=== PATIENT | female | born 1990 | race Caucasian/White ===

== ENCOUNTER 2018-03-03 23:19 | Outpatient (CLI) | payer BC ==
[2018-03-03 23:33] LABS: Basophils % (A) 0 %; Eosinophils # (A) 0.1 k/uL (0-0.7); Eosinophils % (A) 1 %; HGB 9.8 gm/dL (11.4-16.0); Lymphocytes # (A) 1.9 k/uL (1.0-4.8); Lymphocytes % (A) 18 %; MCH 29.3 pg (25.0-35.0); MCHC 35.1 g/dL (31.0-37.0); MCV 83.5 fL (80.0-100.0); Mean Platelet Volume 7.3; Monocytes # (A) 0.6 k/uL (0-1.0); Monocytes % (A) 6 %; Neutrophils # (A) 7.5 k/uL (1.3-7.7); Neutrophils % (A) 73 %; Platelet Count 238 k/uL (150-450); Poikilocytosis Slight; RBC 3.35 m/uL (3.80-5.40); RDW 14.2 % (11.5-15.5); WBC 10.3 k/uL (3.8-10.6)
--- NOTE | 2018-03-03 23:40 | P.HPOB ---
History of Present Illness H&P Date: 03/03/18 Chief Complaint: Third trimester bleeding His patient is a pleasant 27-year-old 2 para 0 female estimated date of confinement 04/16/2018 estimated gestational age 33-5/7 weeks who's called me earlier this evening with complaints of a large amount of vaginal bleeding at approximately 10:30. Patient's care is per Dr. Torres appears to be uncomplicated. She did transfer to Dr. Torres at 21 weeks and she 's had a normal anatomy ultrasound normal placenta. Patient denies any bleeding with the . She denies any contractions or abdominal pain. Patient was most recently seen on February 27 and was without complaints at that time. Patient is now being seen and evaluated. Review of Systems Genitourinary: Reports Past Medical History Past Medical History: No Reported History History of Any Multi-Drug Resistant Organisms: None Reported Additional Past Surgical History / Comment(s): She's had a D&C for a previous miscarriage. Past Anesthesia/Blood Transfusion Reactions: No Reported Reaction Past Psychological History: No Psychological Hx Reported Smoking Status: Never smoker Past Alcohol Use History: None Reported Past Drug Use History: None Reported Medications and Allergies Home Medications Medication Instructions Recorded Confirmed Type Pnv,Calcium 72/Iron/Folic Acid 1 tab PO DAILY 03/03/18 03/03/18 History [ Plus Tablet] Allergies Allergy/AdvReac Type Severity Reaction Status Date / Time azithromycin Allergy Rash/Hives Verified 03/03/18 23:21 Exam - Vital Signs Vital signs: Intake and Output 03/03/18 03/03/18 03/04/18 14:59 22:59 06:59 Other: Weight 79.832 kg - OBG Physical Exam Abdomen: bowel sounds normal, no diffuse tenderness, no bruit present, no guarding noted, no hepatomegaly, no splenomegaly, no mass Vulva: both: normal Vagina: normal moisture, no discharge Cervix: no lesion (Cervix is 1 and thick. Sterile speculum exam shows pooling of dark red vaginal blood.), no discharge Uterus: enlarged Results Patient's blood type is A- (she did not receive RhoGAM because her reports he is Rh- as well) she is rubella immune she is RPR nonreactive she's hepatitis B negative she is HIV nonreactive. She had an abnormal Glucola with a normal three-hour gtt. She had a normal anatomy ultrasound done at 21 weeks. Assessment and Plan Assessment: This is a pleasant 27-year-old 2 para 0 female 33-5/7 weeks' gestation with acute onset of dark red vaginal bleeding. This time heart tones are reassuring without decelerations. Patient is not having any contractions that she appreciates a little she is dilated 1 cm. Patient is not having any abdominal pain. Plan at this time is to do a OB ultrasound, check a CBC, do a type and screen, and check coags. Pending these results most likely will transfer this patient due to concern for possible abruption versus dilation. (1) Third trimester bleeding Current Visit: Yes Status: Acute Code(s): O46.93 - ANTEPARTUM HEMORRHAGE, UNSPECIFIED, THIRD TRIMESTER SNOMED Code(s): 602388639
[2018-03-03] MEDS ORDERED: BETAMET ACET-BETAMETH SOD PHOS 6 MG/ML VIAL IM SCH (23:45)
[2018-03-03 23:48] LABS: INR 0.9 (<1.2); Prothrombin Time 9.4 sec (9.0-12.0)
[2018-03-04] MEDS ORDERED: LACTATED RINGERS 1,000 ML IV SCH (00:15)
--- NOTE | 2018-03-04 00:21 | US ---
EXAMINATION TYPE: US OB >= 14 wk fetus DATE OF EXAM: 03/04/2018 COMPARISON: None CLINICAL HISTORY: Third trimester bleedingBleeding TECHNIQUE: Transabdominal (TA) GESTATIONAL AGE / DATING Physician Established: (33 weeks/5 days) EDC: 04/16/2018 Dates by LMP: (33 weeks/5 days) EDC: 04/16/2018 Dates by First Scan: No previous this is first scan Dates by Current Scan: (33 weeks/2 days) EDC: 04/19/2018 SURVEY IUP: Single PLACENTA: Anterior PREVIA: No Previa CARLOS: 14.2 cm Normal CERVICAL LENGTH (transabdominal: norm > 3.0cm): 3.9 cm BIOMETRY PRESENTATION: Vertex LIE: Longitudinal BPD: 8.5 cm 34 weeks / 1 days HC: 31.7 cm 35 weeks / 5 days AC: 30.4 cm 34 weeks / 2 days FL: 6.1 cm 31 weeks / 6 days ESTIMATED WEIGHT IN GRAMS: 2271 grams ESTIMATED WEIGHT IN LBS/OZ: 5 lbs. 0 oz. WEIGHT PERCENTAGE BASED ON ESTABLISHED DATES: 44% HC/AC: 1.0 cm Normal FL/AC: 72.6 cm Normal HEART RATE: 134 bpm RHYTHM: Normal Viable IUP 33 wks 2 days MILLER 04/19/2018 HR 134 BPM IMPRESSION: Ultrasound gestational age is 33 weeks and 2 days. No evidence of placenta previa or placental abrupt ion. Amniotic fluid is adequate.
--- NOTE | 2018-03-04 00:22 | P.PN ---
Progress Note - Text Progress Note Date: 03/04/18 Ultrasound shows a vertex appropriately grown fetus 2271 g. There is no evidence of a placental abruption. Amniotic fluid is normal. CBC shows a hemoglobin of 9.8 however on January 03 in the office she was 9.5 so this is chronic in nature. Coagulation factors are normal. heart tones are 130s there are no decelerations and reassuring at this time. I have discussed the clinical situation with the attending physician at [facility] and due to the prematurity I feel is best to transfer at this time in the event of an necessitating delivery. I am going to give her a shot of Celestone prior to transfer. I had a discussion with the patient and her and family about the clinical situation and indication for transfer. They are agreeable transfer at this time. There is no evidence of maternal compromise at this time. Plan at this time is to transfer to [facility] labor and delivery for further evaluation and observation.
--- NOTE | 2018-03-04 00:28 | P.DS ---
Providers Expected date of discharge: 03/04/18 Attending physician: Eriberto Burnette Primary care physician: Agueda Torres - Discharge Diagnosis(es) (1) Third trimester bleeding Current Visit: Yes Status: Acute Hospital Course: Please see dictated H&P and progress note on this patient's admission. Brief summary pleasant 27-year-old 2 para 0 female 33-5/7 weeks' gestation began having fairly copious amount of dark red bleeding at 10:30 this last evening. Patient evaluated in labor and delivery found to have no evidence of abruption on ultrasound, cervix over was dilated 1 cm but thick. Due to prematurity and concerns for possible delivery is felt best to give the patient Celestone and transfer to a tertiary facility. Patient subsequently was transferred to [facility] via EMS. Patient Condition at Discharge: Stable Plan - Discharge Summary New Discharge Prescriptions: No Action Pnv,Calcium 72/Iron/Folic Acid [ Plus Tablet] 1 tab PO DAILY Discharge Medication List Pnv,Calcium 72/Iron/Folic Acid [ Plus Tablet] 1 tab PO DAILY 03/03/18 [ History]
--- NOTE | 2018-03-04 06:52 | P.MSEPDOC ---
Presenting Problems - Arrival Data Date of Arrival on Unit: 03/03/18 Time of Arrival on Unit: 23:01 Mode of Transport: Portable Medical History - Information : 2 Para: 0 Term: 0 : 0 Abortions: Spontaneous or Elective: 0 Number of Living Children: 0 - Gestational Age Gestational Age by MILLER (wks/days): 33 Weeks and 6 Days Physician Notification (Pre) - Notification Comment Comment: DR JAMIL AT BEDSIDE. Disposition - Disposition Discharge Date: 03/04/18 Discharge Time: 01:25 I agree with the RN Medical Screening Exam: Yes Risk & Benefit of care provided described in d/c instruction: Yes Diagnosis: ANTEPARTUM HEMORRHAGE, UNSPECIFIED, THIRD TRIMESTER
== END 2018-03-04 01:25 | disposition short-term general hospital, planned readmission (82) ==
LOC: FBPOP 23:19
PROVIDERS: ATTEND Obstetrics & Gynecology
DX: O46.93 Antepartum hemorrhage, unspecified, third trimester (principal); Z3A.33 33 weeks gestation of pregnancy
CPT/HCPCS: 59025; 99215; 96360; 96361; 96372; 86900; 86901; 85025; 85610; 85730; 86850; 76805; J0702

== ENCOUNTER 2018-04-07 19:50 | Inpatient (IN) | payer BC ==
[2018-04-07] MEDS ORDERED: METHYLERGONOVINE 0.2 MG/ML 1 ML AMP IM PRN (20:24)
[2018-04-07] MEDS ORDERED: OXYTOCIN 10 UNIT/ML 1 ML VIAL IM PRN (20:24)
[2018-04-07] MEDS ORDERED: LIDOCAINE 1% (PF) 10 MG/ML (30 ML SDV) SQ PRN (20:24)
[2018-04-07] MEDS ORDERED: TERBUTALINE 1 MG/ML VIAL SQ PRN (20:24)
[2018-04-07] MEDS ORDERED: CARBOPROST TROMETHAMINE 250 MCG/ML 1 ML AMP IM PRN (20:24)
[2018-04-07] MEDS ORDERED: OXYTOCIN 20 UNITS/1000 ML NS 1,000 ML IV SCH (20:30)
[2018-04-07] MEDS: LACTATED RINGERS 1,000 ML IV SCH ×2 (20:59→23:05)
[2018-04-07 21:09] VITALS: BMI 32.8
[2018-04-07 21:23] LABS: Basophils % (A) 0 %; Eosinophils % (A) 0 %; HCT 29.2 % (34.0-46.0); HGB 10.2 gm/dL (11.4-16.0); Lymphocytes # (A) 1.5 k/uL (1.0-4.8); Lymphocytes % (A) 17 %; MCHC 34.9 g/dL (31.0-37.0); Mean Platelet Volume 8.7; Monocytes # (A) 0.7 k/uL (0-1.0); Monocytes % (A) 8 %; Neutrophils # (A) 6.2 k/uL (1.3-7.7); Neutrophils % (A) 73 %; Platelet Count 208 k/uL (150-450); RBC 3.52 m/uL (3.80-5.40); RDW 14.2 % (11.5-15.5); WBC 8.6 k/uL (3.8-10.6)
[2018-04-07] MEDS ORDERED: fentaNYL (PF) 50 MCG/ML 5 ML AMP ONE (22:27)
[2018-04-07] MEDS ORDERED: BUPIVACAINE (PF) 0.25% 30 ML VIAL ONE (22:27)
[2018-04-07] MEDS ORDERED: SODIUM CHLORIDE 0.9% 100 ML BAG ONE (22:27)
[2018-04-08] MEDS ORDERED: HYDROcodone/APAP 5-325MG 1 EACH TAB PO PRN (04:29)
[2018-04-08] MEDS ORDERED: HYDROCORTISONE 2.5% RECTAL CREAM 30 GM TUBE RECTAL PRN (04:29)
[2018-04-08] MEDS ORDERED: SIMETHICONE 80 MG CHEWABLE PO PRN (04:29)
[2018-04-08] MEDS ORDERED: WITCH HAZEL 1 EACH MED..PAD TOPICAL PRN (04:29)
[2018-04-08] MEDS ORDERED: diphenhydrAMINE 50 MG/ML 1 ML VIAL IVP PRN ×2 (04:29)
[2018-04-08] MEDS ORDERED: ZOLPIDEM 5 MG TAB PO PRN (04:29)
[2018-04-08] MEDS ORDERED: ACETAMINOPHEN TAB 325 MG TAB PO PRN (04:29)
[2018-04-08] MEDS ORDERED: diphenhydrAMINE 25 MG CAP PO PRN (04:29)
[2018-04-08] MEDS ORDERED: diphenhydrAMINE 50 MG CAP PO PRN (04:29)
[2018-04-08] MEDS ORDERED: LANOLIN CREAM 5 GM TUBE TOPICAL PRN (04:29)
[2018-04-08] MEDS ORDERED: BENZOCAINE/MENTHOL SPRAY 1 GM/SPRAY AEROSOL TOPICAL PRN (04:29)
[2018-04-08] MEDS ORDERED: OXYTOCIN 20 UNITS/1000 ML NS 1,000 ML IV SCH (04:30)
--- NOTE | 2018-04-08 04:34 | P.HPOB ---
History of Present Illness H&P Date: 04/08/18 Chief Complaint: SROM 27-year-old presents at 38 weeks and 5 days complaining of spontaneous rupture of membranes at 1830 on 04/07/2018. Clear fluid was noted and she was deandre irregularly. heart tones 130-135 with moderate variability and reactive. Her cervix was 3-4 cm dilated, 80% effaced, -2 station. Review of Systems All systems: negative Constitutional: Denies chills, Denies fever Eyes: denies blurred vision, denies pain Ears, nose, mouth and throat: Denies headache, Denies sore throat Cardiovascular: Denies chest pain, Denies shortness of breath Respiratory: Denies cough Gastrointestinal: Denies abdominal pain, Denies diarrhea, Denies nausea, Denies vomiting Genitourinary: Denies dysuria, Denies hematuria Musculoskeletal: Denies myalgias Integumentary: Denies pruritus, Denies rash Neurological: Denies numbness, Denies weakness Psychiatric: Denies anxiety, Denies depression Endocrine: Denies fatigue, Denies weight change Past Medical History Past Medical History: No Reported History Additional Past Medical History / Comment(s): Obstetric history: First was a spontaneous with a D&C. This is her second and she's had care with me since 21 weeks as a transfer of care. Blood type A-, antibodies negative, rubella immune, RPR nonreactive, hepatitis B negative, HIV nonreactive. GBS negative. Abnormal one-hour GTT, and a normal 3 hour. History of Any Multi-Drug Resistant Organisms: None Reported Additional Past Surgical History / Comment(s): She's had a D&C for a previous miscarriage. Past Anesthesia/Blood Transfusion Reactions: No Reported Reaction Past Psychological History: No Psychological Hx Reported Smoking Status: Never smoker Past Alcohol Use History: None Reported Past Drug Use History: None Reported - Past Family History Mother Family Medical History: No Reported History Medications and Allergies Home Medications Medication Instructions Recorded Confirmed Type Pnv,Calcium 72/Iron/Folic Acid 1 tab PO DAILY 03/03/18 03/03/18 History [ Plus Tablet] Allergies Allergy/AdvReac Type Severity Reaction Status Date / Time azithromycin Allergy Rash/Hives Verified 04/07/18 20:23 Exam Osteopathic Statement: *. No significant issues noted on an osteopathic structural exam other than those noted in the History and Physical/Consult. - Vital Signs Vital signs: Vital Signs Temp Pulse Resp BP Pulse Ox 04/07/18 20:23 97.7 F 73 18 131/75 99 Intake and Output 04/07/18 04/07/18 04/08/18 14:59 22:59 06:59 Other: # Voids 1 Weight 83.915 kg Heart: Regular rate and rhythm Lungs: Clear to auscultation bilaterally Abdomen: Soft, nontender Extremities: Negative Homans sign Results Result Diagrams: 04/07/18 21:00 Abnormal Lab Results - Last 24 Hours (Table) 04/07/18 Range/Units 21:00 RBC 3.52 L (3.80-5.40) m/uL Hgb 10.2 L (11.4-16.0) gm/dL Hct 29.2 L (34.0-46.0) % Assessment and Plan (1) Spontaneous rupture of membranes Current Visit: Yes Status: Acute Code(s): [id number] - SNOMED Code(s): 799891439 Plan: 1. Admit to family place 2. Pitocin augmentation if necessary 3. Anticipate normal vaginal delivery
--- NOTE | 2018-04-08 04:37 | P.PROBDLV ---
Vaginal Delivery Note - . Vaginal Delivery Note: 27-year-old presents at 38 weeks and 5 days with spontaneous rupture of membranes at 1830 on 04/07/2018. Her cervix was 3-4 cm dilated, 80% effaced, and -2 station, clear fluid noted. She is deandre irregularly. heart tones were 130-135 with moderate variability and reactive. After an IV was started her contractions became even more irregular and Pitocin augmentation was started. When she was uncomfortable she did get an epidural. Her cervix was completely dilated at 1:39 AM. She pushed, and delivered a viable female over midline episiotomy under epidural anesthesia at 3:55 AM. Head delivered OA, anterior shoulder which was the left shoulder delivered gentle downward traction followed by posterior shoulder and rest of body. Nose and mouth bulb suctioned, cord clamped and cut, infant placed on mother's abdomen. Apgars 7, 8, weight 7 lbs. 10 oz. Placenta delivered spontaneously, intact with three-vessel cord at 3:59 AM. Vagina, cervix, and perineum were inspected. Third degree midline laceration was repaired with 2-0, 3-0 and 4-0 Vicryl. Estimated blood loss 200 mL. Mother and baby in stable condition.
[2018-04-08] MEDS: IBUPROFEN 600 MG TAB PO PRN ×2 (04:56→20:25)
[2018-04-08] MEDS ORDERED: BUPIVACAINE (PF) 0.25% 25 ML, fentaNYL (PF) 200 MCG in SODIUM CHLORIDE 0.9% 71 ML EPIDURAL ONE (06:51)
[2018-04-08] MEDS: SENNOSIDES-DOCUSATE SODIUM 1 EACH TAB PO SCH ×2 (18:22→19:37)
--- NOTE | 2018-04-09 07:00 | P.DS ---
Providers Date of admission: 04/07/18 20:20 Expected date of discharge: 04/09/18 Attending physician: Agueda Torres Primary care physician: Agueda Torres - Discharge Diagnosis(es) (1) Spontaneous rupture of membranes Current Visit: Yes Status: Resolved (2) Normal vaginal delivery Current Visit: Yes Status: Acute Hospital Course: Patient presented with spontaneous rupture membranes. She underwent a normal vaginal delivery with Pitocin augmentation. Her course was uncomplicated. She denies nausea, vomiting, chest pain, shortness of breath or calf pain. She is ambulating and voiding without difficulty. Her lochia is decreasing and her fundus is firm. She will be discharged home day # 1 in stable condition to follow-up with me in 6 weeks. Plan - Discharge Summary New Discharge Prescriptions: New Ibuprofen [Motrin] 600 mg PO Q6HR PRN #30 tab PRN Reason: Mild Pain Or Fever >= 100.5 No Action Pnv,Calcium 72/Iron/Folic Acid [ Plus Tablet] 1 tab PO DAILY Discharge Medication List Pnv,Calcium 72/Iron/Folic Acid [ Plus Tablet] 1 tab PO DAILY 03/03/18 [ History] Ibuprofen [Motrin] 600 mg PO Q6HR PRN #30 tab 04/09/18 [Rx] Follow up Appointment(s)/Referral(s): Agueda Torres DO [Primary Care Provider] - 6 Weeks Discharge Disposition: HOME SELF-CARE
[2018-04-09] MEDS: SENNOSIDES-DOCUSATE SODIUM 1 EACH TAB PO SCH ×2 (15:54→19:28)
[2018-04-09] MEDS: IBUPROFEN 600 MG TAB PO PRN (17:04)
[2018-04-10 00:21] VITALS: RESP 16
[2018-04-10] MEDS: SENNOSIDES-DOCUSATE SODIUM 1 EACH TAB PO SCH (09:24)
[2018-04-10 09:36] VITALS: BP 111/78; PULSE 90; TEMP 98
== END 2018-04-10 15:30 | disposition home or self-care (01) | DRG 775 ==
LOC: FBPOP 19:50 → 4FBP 20:20
PROVIDERS: ADMIT Obstetrics & Gynecology; ATTEND Obstetrics & Gynecology
PROC: 0W8NXZZ Division of Female Perineum, External Approach (ICD-10-PCS; principal; 2018-04-07)
PROC: 10E0XZZ Delivery of Products of Conception, External Approach (ICD-10-PCS; 2018-04-07)
PROC: 00HU33Z Insertion of Infusion Device into Spinal Canal, Percutaneous Approach (ICD-10-PCS; 2018-04-07)
PROC: 3E0R3NZ Introduction of Analgesics, Hypnotics, Sedatives into Spinal Canal, Percutaneous Approach (ICD-10-PCS; 2018-04-07)
DX: O80 Encounter for full-term uncomplicated delivery (principal); Z3A.38 38 weeks gestation of pregnancy; Z37.0 Single live birth; Z88.1 Allergy status to other antibiotic agents
CPT/HCPCS: 85025; 88307

== ENCOUNTER 2019-10-21 05:07 | Inpatient (IN) | payer BC ==
[2019-10-21] MEDS ORDERED: TERBUTALINE 1 MG/ML VIAL SQ PRN (05:34)
[2019-10-21] MEDS ORDERED: OXYTOCIN 10 UNIT/ML 1 ML VIAL IM PRN (05:34)
[2019-10-21] MEDS ORDERED: METHYLERGONOVINE 0.2 MG/ML 1 ML AMP IM PRN (05:34)
[2019-10-21] MEDS ORDERED: LIDOCAINE 0.5% (PF) 5 MG/ML (50 ML SDV) SQ PRN (05:34)
[2019-10-21] MEDS ORDERED: CARBOPROST TROMETHAMINE 250 MCG/ML 1 ML AMP IM PRN (05:34)
[2019-10-21] MEDS ORDERED: BUTORPHANOL 1 MG/ML 1 ML VIAL IV PRN (05:35)
[2019-10-21] MEDS ORDERED: LACTATED RINGERS 1,000 ML IV SCH (05:45)
[2019-10-21 05:52] VITALS: BMI 32.4
[2019-10-21 05:56] LABS: Basophils # (A) 0.1 k/uL (0-0.2); Basophils % (A) 1 %; Eosinophils # (A) 0.1 k/uL (0-0.7); Eosinophils % (A) 1 %; HCT 31.5 % (34.0-46.0); Lymphocytes # (A) 1.7 k/uL (1.0-4.8); Lymphocytes % (A) 21 %; MCH 30.4 pg (25.0-35.0); MCHC 34.7 g/dL (31.0-37.0); MCV 87.5 fL (80.0-100.0); Mean Platelet Volume 7.5; Monocytes # (A) 0.5 k/uL (0-1.0); Monocytes % (A) 6 %; Neutrophils # (A) 5.6 k/uL (1.3-7.7); Neutrophils % (A) 70 %; Platelet Count 205 k/uL (150-450); RDW 14.5 % (11.5-15.5)
[2019-10-21 06:39] LABS: Glucose,Whole Blood 96 mg/dL (75-99)
[2019-10-21] MEDS ORDERED: OXYTOCIN 30 UNITS/500 ML NS 30 UNIT in SALINE 1 500ML.BAG IV SCH (07:00)
--- NOTE | 2019-10-21 08:43 | P.HPOB ---
History of Present Illness H&P Date: 10/21/19 Chief Complaint: IUP at 38 and 2/sevenths weeks, spontaneous rupture of memb ro This is a 29-year-old 3 para 1011 at 38-2/7 weeks that presents to labor and delivery with complaints of rupture of membranes at 4 AM. Patient states she had a small gush of fluid that was clear in nature. Patient presented to the hospital and rupture of membranes was confirmed. Patient was admitted to labor and delivery. This morning patient is noted to be deandre every 3 m inutes and heart tones are noted to be category 1. Patient states the baby has been active she denies vaginal bleeding at this time. Her care has been uncomplicated with the exception of diet- controlled gestational diabetes she has had excellent control. On bloodwork should a blood type of A-, rubella is noted to be nonimmune, hep Esperanza surface antigen is negative, GBS is negative. Review of Systems Constitutional: Denies fatigue, Denies fever Ears, nose, mouth and throat: Denies headache Cardiovascular: Reports leg edema Gastrointestinal: Denies constipation, Denies diarrhea, Denies nausea, Denies vomiting Genitourinary: Reports Past Medical History Past Medical History: No Reported History Additional Past Medical History / Comment(s): Obstetric history: First was a spontaneous with a D&C. This is her second and she's had care with me since 21 weeks as a transfer of care. Blood type A-, antibodies negative, rubella immune, RPR nonreactive, hepatitis B negative, HIV nonreactive. GBS negative. Abnormal one-hour GTT, and a normal 3 hour. GDM 09/19 History of Any Multi-Drug Resistant Organisms: None Reported Additional Past Surgical History / Comment(s): She's had a D&C for a previous miscarriage. Past Anesthesia/Blood Transfusion Reactions: No Reported Reaction Past Psychological History: No Psychological Hx Reported Smoking Status: Never smoker Past Alcohol Use History: None Reported Past Drug Use History: None Reported - Past Family History Mother Family Medical History: No Reported History Medications and Allergies Home Medications Medication Instructions Recorded Confirmed Type Pnv,Calcium 72/Iron/Folic Acid 1 tab PO DAILY 03/03/18 10/21/19 History [ Plus Tablet] Allergies Allergy/AdvReac Type Severity Reaction Status Date / Time azithromycin Allergy Rash/Hives Verified 10/21/19 05:33 Exam Osteopathic Statement: *. No significant issues noted on an osteopathic structural exam other than those noted in the History and Physical/Consult. Vital Signs Temp Pulse Resp BP Pulse Ox 10/21/19 05:32 97.6 F 73 16 125/82 98 10/21/19 05:22 97.6 F 73 16 125/82 98 Intake and Output 10/20/19 10/21/19 10/21/19 22:59 06:59 14:59 Other: # Voids 1 Weight 83.007 kg Targeted physical exam is performed on this date and senior report developer a well-nourished well-developed female in no acute distress, breathing is noted to be nonlabored, heart has a regular rate and rhythm abdomen is gravid and appropriate for gestational age, on cervical exam she is 5/70/-2 large bulging bag of water is noted amniotomy is performed and clear fluid was obtained. heart tones are noted to be category 1 and she is deandre every 2-3 minutes. Results Result Diagrams: 10/21/19 05:47 Abnormal Lab Results - Last 24 Hours (Table) 10/21/19 Range/Units 05:47 RBC 3.60 L (3.80-5.40) m/uL Hgb 11.0 L (11.4-16.0) gm/dL Hct 31.5 L (34.0-46.0) % Assessment and Plan (1) Term Current Visit: Yes Status: Acute Code(s): Z34.90 - ENCNTR FOR SUPRVSN OF NORMAL , UNSP, UNSP TRIMESTER SNOMED Code(s): 97332669 (2) Spontaneous rupture of membranes Current Visit: No Status: Resolved Code(s): YPH6882 - SNOMED Code(s): 221765821 Plan: Patient is admitted to labor and delivery she does request epidural anesthesia has been notified. Anticipate spontaneous vaginal delivery.
[2019-10-21] MEDS ORDERED: ROPIVACAINE 5MG/ML 20ML VIAL ONE (08:46)
[2019-10-21] MEDS ORDERED: SODIUM CHLORIDE 0.9% 100 ML BAG ONE (08:46)
[2019-10-21] MEDS ORDERED: fentaNYL (PF) 50 MCG/ML 5 ML AMP ONE (08:46)
[2019-10-21] MEDS ORDERED: WITCH HAZEL 1 EACH MED..PAD TOPICAL PRN (12:49)
[2019-10-21] MEDS ORDERED: HYDROcodone/APAP 5-325MG 1 EACH TAB PO PRN (12:49)
[2019-10-21] MEDS ORDERED: diphenhydrAMINE 50 MG/ML 1 ML VIAL IVP PRN ×2 (12:49)
[2019-10-21] MEDS ORDERED: ACETAMINOPHEN TAB 325 MG TAB PO PRN (12:49)
[2019-10-21] MEDS ORDERED: diphenhydrAMINE 50 MG CAP PO PRN (12:49)
[2019-10-21] MEDS ORDERED: diphenhydrAMINE 25 MG CAP PO PRN (12:49)
[2019-10-21] MEDS ORDERED: ZOLPIDEM 5 MG TAB PO PRN (12:49)
[2019-10-21] MEDS ORDERED: HYDROCORTISONE 2.5% RECTAL CREAM 30 GM TUBE RECTAL PRN (12:49)
[2019-10-21] MEDS ORDERED: BENZOCAINE/MENTHOL SPRAY 1 GM/SPRAY AEROSOL TOPICAL PRN (12:49)
[2019-10-21] MEDS ORDERED: SIMETHICONE 80 MG CHEWABLE PO PRN (12:49)
[2019-10-21] MEDS ORDERED: LANOLIN CREAM 5 GM TUBE TOPICAL PRN (12:49)
--- NOTE | 2019-10-21 12:52 | P.PROBDLV ---
Vaginal Delivery Note - . Vaginal Delivery Note: This is a pleasant 29-year-old 3 para 1011 that presented to labor and delivery at 38-2/7 weeks with complaints of spontaneous rupture of membranes. Patient was admitted for expectant management. Patient made minimal change therefore Pitocin augmentation of labor was begun. Patient became uncomfortable requesting epidural placement. Epidural was placed without difficulty by the anesthesia department. She then progressed to complete began pushing and had a normal spontaneous vaginal delivery of a viable female infant at 1231, weight of 8 lbs. 9 oz. with Apgars of 8 and 9 at one and 5 minutes respectively. Of note infant was delivered through a nuchal cord, after two-minute delayed the umbilical cord was then doubly clamped and cut the placenta was delivered spontaneously intact with three-vessel cord being noted. On inspection the patient's vaginal vault a second-degree midline laceration was noted this was repaired in the usual fashion with 3-0 Rapide. Uterus was noted to be firm and below the umbilicus, estimated blood loss 300 mL, Henry catheter was used to drain the bladder of approximately 200 mL of urine after delivery. Patient and tolerated delivery well and are resting comfortably, All counts WERE correct 2
[2019-10-21] MEDS ORDERED: OXYTOCIN 20 UNITS/1000 ML NS 1,000 ML IV SCH (13:00)
[2019-10-21] MEDS: IBUPROFEN 600 MG TAB PO PRN (19:36)
[2019-10-21] MEDS: SENNOSIDES-DOCUSATE SODIUM 1 EACH TAB PO SCH (22:49)
[2019-10-22 07:05] LABS: Basophils % (A) 0 %; Eosinophils % (A) 0 %; HCT 27.9 % (34.0-46.0); HGB 9.6 gm/dL (11.4-16.0); Lymphocytes # (A) 1.5 k/uL (1.0-4.8); Lymphocytes % (A) 16 %; MCH 30.6 pg (25.0-35.0); MCHC 34.3 g/dL (31.0-37.0); MCV 89.2 fL (80.0-100.0); Mean Platelet Volume 7.6; Monocytes # (A) 0.5 k/uL (0-1.0); Monocytes % (A) 6 %; Neutrophils # (A) 7.3 k/uL (1.3-7.7); Neutrophils % (A) 77 %; Platelet Count 176 k/uL (150-450); RBC 3.13 m/uL (3.80-5.40); RDW 14.7 % (11.5-15.5); WBC 9.6 k/uL (3.8-10.6)
[2019-10-22] MEDS ORDERED: MEASLES-MUMPS-RUBELLA VACC/PF 12,500 UNIT/0.5 ML VIAL SQ ONE (08:12)
--- NOTE | 2019-10-22 08:31 | P.DS ---
Providers Date of admission: 10/21/19 05:24 Expected date of discharge: 10/22/19 Attending physician: Alpa Garcia Primary care physician: Stated None - Discharge Diagnosis(es) (1) Term Current Visit: Yes Status: Acute (2) Spontaneous rupture of membranes Current Visit: No Status: Resolved (3) Normal vaginal delivery Current Visit: No Status: Acute Hospital Course: This is a pleasant 29-year-old 3 para 1011 that presented to labor and delivery at 38-2/7 weeks with complaints of spontaneous rupture of membranes. Patient stated the fluid was clear at the time of rupture of membranes. Patient was admitted for expectant management. Patient made minimal change therefore Pitocin augmentation of labor was begun. On physical exam patient was noted to be 6/80/-2 and a large bulging bag of water was palpated therefore amniotomy was performed and clear fluid was obtained. Patient requested epidural placement at this time. Epidural was placed by the anesthesia department without difficulty. Patient progressed to complete and had a normal spontaneous vaginal delivery of a viable female at 1231, weight of 8 pounds 9 ounces with Apgars of 8 and 9 at one and 5 minutes respectively. Patient did sustain a second degree vaginal laceration which was repaired in the usual fashion with 3-0 repeat. Patient's post course has been uneventful. She is ambulating and voiding without difficulty on this day #1. She is tolerating a regular diet without nausea or vomiting. She states her pain is well-controlled. Her infant is doing well and awaiting a bilirubin screen. She does wish discharge home at 24 hours if is discharged as well. Patient Condition at Discharge: Good Plan - Discharge Summary Discharge Rx Participant: No New Discharge Prescriptions: No Action Pnv,Calcium 72/Iron/Folic Acid [ Plus Tablet] 1 tab PO DAILY Discharge Medication List Pnv,Calcium 72/Iron/Folic Acid [ Plus Tablet] 1 tab PO DAILY 03/03/18 [History] Follow up Appointment(s)/Referral(s): Alpa Garcia DO [Doctor of Osteopathic Medicine] - 4 Weeks Patient Instructions/Handouts: Vaginal Delivery (DC), Vaginal Delivery (GEN) Discharge Disposition: HOME SELF-CARE
[2019-10-22] MEDS: SENNOSIDES-DOCUSATE SODIUM 1 EACH TAB PO SCH ×2 (09:27→23:57)
[2019-10-22] MEDS: PRENATAL VIT-IRON-FOLIC ACID 1 EACH CAP PO SCH (09:45)
[2019-10-22] MEDS: IBUPROFEN 600 MG TAB PO PRN (15:33)
[2019-10-22 15:41] VITALS: RESP 16
[2019-10-23] MEDS: IBUPROFEN 600 MG TAB PO PRN (05:07)
[2019-10-23] MEDS: PRENATAL VIT-IRON-FOLIC ACID 1 EACH CAP PO SCH (09:08)
[2019-10-23] MEDS: SENNOSIDES-DOCUSATE SODIUM 1 EACH TAB PO SCH (09:08)
[2019-10-23 16:06] VITALS: BP 126/74; PULSE 71; TEMP 97.6
== END 2019-10-23 17:30 | disposition home or self-care (01) | DRG 807 ==
LOC: FBPOP 05:07 → 4FBP 05:24
PROVIDERS: ADMIT Obstetrics & Gynecology Obstetrics; ATTEND Obstetrics & Gynecology Obstetrics
PROC: 10E0XZZ Delivery of Products of Conception, External Approach (ICD-10-PCS; principal; 2019-10-21)
PROC: 0KQM0ZZ Repair Perineum Muscle, Open Approach (ICD-10-PCS; 2019-10-21)
PROC: 00HU33Z Insertion of Infusion Device into Spinal Canal, Percutaneous Approach (ICD-10-PCS; 2019-10-21)
PROC: 3E0R3BZ Introduction of Anesthetic Agent into Spinal Canal, Percutaneous Approach (ICD-10-PCS; 2019-10-21)
DX: O24.420 Gestational diabetes mellitus in childbirth, diet controlled (principal); Z37.0 Single live birth; O69.81X0 Labor and delivery complicated by cord around neck, without compression, not applicable or unspecified; O70.1 Second degree perineal laceration during delivery; Z3A.38 38 weeks gestation of pregnancy
CPT/HCPCS: 85025; 86850; 86870; 86880; 86900; 86901; 90707

== ENCOUNTER 2022-10-21 02:32 | Inpatient (IN) | payer BC ==
[2022-10-21] MEDS ORDERED: LIDOCAINE 0.5% (PF) 5 MG/ML (50 ML SDV) SQ PRN (02:57)
[2022-10-21] MEDS ORDERED: PENICILLIN G POTASSIUM 5,000,000 UNIT in DEXTROSE 5% IN WATER 100 ML IVPB STA ×2 (02:57)
[2022-10-21] MEDS ORDERED: METHYLERGONOVINE 0.2 MG/ML 1 ML AMP IM PRN (02:57)
[2022-10-21] MEDS ORDERED: CARBOPROST TROMETHAMINE 250 MCG/ML 1 ML AMP IM PRN (02:57)
[2022-10-21] MEDS ORDERED: TRANEXAMIC ACID IN NACL,ISO-OS 1,000 MG in EMPTY BAG 1 BAG IV PRN (02:57)
[2022-10-21] MEDS ORDERED: miSOPROStoL 200 MCG TAB PO PRN (02:57)
[2022-10-21] MEDS ORDERED: TERBUTALINE 1 MG/ML VIAL SQ PRN (02:57)
[2022-10-21] MEDS ORDERED: OXYTOCIN 30 UNITS/500 ML NS 30 UNIT in SALINE 1 500ML.BAG IV SCH (03:00)
[2022-10-21] MEDS ORDERED: LACTATED RINGERS 1,000 ML IV SCH (03:00)
[2022-10-21] MEDS ORDERED: diphenhydrAMINE 25 MG CAP PO PRN (03:36)
[2022-10-21] MEDS ORDERED: HYDROcodone/APAP 5-325MG 1 EACH TAB PO PRN (03:36)
[2022-10-21] MEDS ORDERED: diphenhydrAMINE 50 MG CAP PO PRN (03:36)
[2022-10-21] MEDS ORDERED: LANOLIN CREAM 5 GM TUBE TOPICAL PRN (03:36)
[2022-10-21] MEDS ORDERED: HYDROcodone/APAP 7.5-325MG 1 EACH TAB PO PRN (03:36)
[2022-10-21] MEDS ORDERED: diphenhydrAMINE 50 MG/ML 1 ML VIAL IVP PRN ×2 (03:36)
[2022-10-21] MEDS ORDERED: BENZOCAINE/MENTHOL SPRAY 1 GM/SPRAY AEROSOL TOPICAL PRN (03:36)
[2022-10-21] MEDS ORDERED: SIMETHICONE 80 MG CHEWABLE PO PRN (03:36)
[2022-10-21] MEDS ORDERED: ACETAMINOPHEN TAB 325 MG TAB PO PRN (03:36)
[2022-10-21] MEDS ORDERED: HYDROCORTISONE 2.5% RECTAL CREAM 30 GM TUBE RECTAL PRN (03:36)
[2022-10-21] MEDS ORDERED: ZOLPIDEM 5 MG TAB PO PRN (03:36)
--- NOTE | 2022-10-21 03:45 | P.HPOB ---
History of Present Illness H&P Date: 10/21/22 Chief Complaint: 35 and one sevenths weeks, spontaneous rupture of membranes, active the patient is a 32-year-old 4 para 2012 admitted at 35 and one sevenths weeks as established by an 8 week ultrasound. She is admitted with documented spontaneous rupture of membranes in active labor with a category 2 heart rate tracing. She reports that she had been having some irregular contractions earlier this evening and had spontaneous rupture of membranes at approximately 1 AM at which time she began to get ready to come to the hospital. On presentation, she is found to be 6 cm with documented spontaneous rupture of membranes. Her has been complicated by presumptive gestational diabetes as she has a history of gestational diabetes in the past and failed her one-hour Glucola and second trimester and declined to perform a three-hour. Blood sugars were reportedly normal throughout. She also reported that she had elevated blood pressures on a home blood pressure cuff but her blood pressures O were always reported normal in the office. She has not undergone a previous biopsy workup thus far in the . Group B strep status is unknown. Obstetrical history: 4 para 2012 with 2 term vaginal deliveries and one early loss. EDC of 11/25/2022 was established by an 8 week ultrasound. Laboratory workup demonstrates a blood type of A- with a negative antibody screen. Rubella status is immune. The remainder of the laboratory workup was within normal limits. She had an early Glucola which was elevated and followed by a normal three-hour glucose tolerance test. Her second trimester Glucola was also elevated at which time she declined to perform a three-hour glucose tolerance test preferring instead to be treated as a gestational diabetic. Group B strep status has not yet been determined. Oncologic history: Unremarkable with no history of any infections to include STDs. Review of Systems review of systems is confined to history of present illness. Past Medical History Past Medical History: No Reported History Additional Past Medical History / Comment(s): Obstetric history: First was a spontaneous with a D&C. This is her second and she's had care with me since 21 weeks as a transfer of care. Blood type A-, antibodies negative, rubella immune, RPR nonreactive, hepatitis B negative, HIV nonreactive. GBS negative. Abnormal one-hour GTT, and a normal 3 hour. GDM 09/19 History of Any Multi-Drug Resistant Organisms: None Reported Additional Past Surgical History / Comment(s): She's had a D&C for a previous miscarriage. Past Anesthesia/Blood Transfusion Reactions: No Reported Reaction Past Psychological History: No Psychological Hx Reported Past Alcohol Use History: None Reported Past Drug Use History: None Reported - Past Family History Mother Family Medical History: No Reported History Medications and Allergies Home Medications Medication Instructions Recorded Confirmed Type Pnv,Calcium 72/Iron/Folic Acid 1 tab PO DAILY 03/03/18 10/21/19 History [ Plus Tablet] Allergies Allergy/AdvReac Type Severity Reaction Status Date / Time azithromycin Allergy Rash/Hives Verified 10/21/22 02:34 Exam Intake and Output 10/20/22 10/20/22 10/21/22 14:59 22:59 06:59 Other: Weight 83.915 kg in general, this is a well-developed, well-nourished white female in significant discomfort when I arrived as she is in active labor. Her heart has a regular rhythm and is tachycardic without a murmur. Her lungs are clear to auscultation bilaterally in all taveras retractor abdomen is gravid, nondistended, soft, nontender aside from contractions and without any palpable masses aside from the uterine fundus. Her extremities without any cyanosis, clubbing, or edema and are nontender to palpation bilaterally. Digital cervical examination at that time demonstrates her to be completely dilated with the vertex in presentation at 0 to +1 station. Assessment and Plan (1) premature rupture of membranes Current Visit: Yes Status: Acute Code(s): O42.919 - PRETRM JULIETA ROM, UNSP TIME BETW RUPT AND ONST LABR, UNSP TRI SNOMED Code(s): 018650925 (2) Gestational diabetes Current Visit: Yes Status: Acute Code(s): O24.419 - GESTATIONAL DIABETES MELLITUS IN , UNSP CONTROL SNOMED Code(s): 05608166 (3) Active labor Current Visit: Yes Status: Acute Code(s): O60.10X0 - LABOR W DELIVERY, UNSP TRIMESTER, UNSP SNOMED Code(s): 7170847 Plan: the patient was admitted and we anticipate delivery shortly. Heart tones remained category 2 at the time of admission. antibiotics have been ordered but have not yet arrived.
--- NOTE | 2022-10-21 03:48 | P.PROBDLV ---
Vaginal Delivery Note - . Vaginal Delivery Note: the patient is a 32-year-old 4 para 2011 admitted at 35 and one sevenths weeks by good dating parameters. She is admitted in active labor with spontaneous rupture of membranes at 1:00 this morning. Her has been complicated by gestational diabetes which was well controlled with diet by her report. She additionally reports that she had elevated home blood pressures but her blood pressures in the office were normal and no preeclampsia workup has been undertaken. On admission her blood pressures were fairly significantly elevated and labs were ordered. Antibiotic prophylaxis was ordered but has not yet arrived when the patient was found to be complete. She pushed over the course of a single contraction with one push to a normal spontaneous vaginal delivery of a viable 4 lbs. 12 oz. baby boy with Apgars of 7 at 1 minute and 8 at 5 minutes delivered in the direct occiput anterior position. The placenta was delivered spontaneously, intact, and grossly normal though there was a general odor present. Additionally there were noted to be several areas that appeared to be infarcted on the maternal surface as well as significant calcifications, unusual findings for 35 week placenta. There was a grossly normal three-vessel cord inserted approximately 2-3 cm in the margin of the placental disc. There was no evidence of abruption otherwise. There were no lacerations of the perineum, vagina, or cervix. The infant was initially resuscitated in the room and then taken to the nursery per protocol. Both mother and are resting comfortably in recovery of the infant will remain in special care nursery secondary to issues of prematurity. Estimated blood loss for the case was approximate 150 mL. There were no compilations other than the nature of the delivery. All sponge, instrument, needle counts were correct.
[2022-10-21 03:52] LABS: Basophils # (A) 0.1 k/uL (0-0.2); Basophils % (A) 1 %; Eosinophils % (A) 0 %; HCT 39.9 % (34.0-46.0); HGB 14.2 gm/dL (11.4-16.0); Lymphocytes # (A) 2.7 k/uL (1.0-4.8); Lymphocytes % (A) 31 %; MCH 30.9 pg (25.0-35.0); MCHC 35.6 g/dL (31.0-37.0); MCV 86.7 fL (80.0-100.0); Mean Platelet Volume 10.2; Monocytes # (A) 0.6 k/uL (0-1.0); Monocytes % (A) 7 %; Neutrophils # (A) 4.9 k/uL (1.3-7.7); Neutrophils % (A) 58 %; Platelet Count 241 k/uL (150-450); RDW 14.1 % (11.5-15.5); WBC 8.5 k/uL (3.8-10.6)
[2022-10-21 03:59] LABS: ALT 12 U/L (4-34); AST 28 U/L (14-36); African American GFR (CKD) >90 (>60 ml/min/1.73 sqM); Blood Urea Nitrogen 21 mg/dL (7-17); LDH 564 U/L (313-618); Non-African American GFR(CKD) >90 (>60 ml/min/1.73 sqM); Uric Acid 8.5 mg/dL (3.7-7.4)
[2022-10-21 04:05] LABS: INR 0.8 (<1.2); Partial Thromboplastin Time 22.5 sec (22.0-30.0); Prothrombin Time 9.4 sec (9.0-12.0)
[2022-10-21] MEDS ORDERED: LABETALOL 200 MG TAB PO STA (05:05)
[2022-10-21] MEDS ORDERED: PENICILLIN G POTASSIUM 2,500,000 UNIT in DEXTROSE 5% IN WATER 100 ML IVPB SCH ×2 (07:00)
[2022-10-21] MEDS: SENNOSIDES-DOCUSATE SODIUM 1 EACH TAB PO SCH ×2 (09:52→19:47)
[2022-10-21] MEDS: LABETALOL 100 MG TAB PO SCH (16:40)
[2022-10-21 23:31] VITALS: RESP 16
[2022-10-22] MEDS ORDERED: LABETALOL 200 MG TAB PO STA (02:38)
[2022-10-22] MEDS: IBUPROFEN 600 MG TAB PO PRN ×3 (03:40→20:47)
[2022-10-22 07:42] LABS: Basophils % (A) 1 %; Eosinophils % (A) 0 %; HCT 28.8 % (34.0-46.0); Lymphocytes # (A) 1.9 k/uL (1.0-4.8); Lymphocytes % (A) 24 %; MCH 30.1 pg (25.0-35.0); MCV 88.5 fL (80.0-100.0); Mean Platelet Volume 9.6; Monocytes # (A) 0.4 k/uL (0-1.0); Monocytes % (A) 5 %; Neutrophils # (A) 5.3 k/uL (1.3-7.7); Neutrophils % (A) 68 %; Platelet Count 155 k/uL (150-450); RBC 3.26 m/uL (3.80-5.40); RDW 14.3 % (11.5-15.5); WBC 7.8 k/uL (3.8-10.6)
[2022-10-22 07:45] LABS: HGB 9.8 gm/dL (11.4-16.0)
[2022-10-22] MEDS: SENNOSIDES-DOCUSATE SODIUM 1 EACH TAB PO SCH ×2 (08:06→22:25)
[2022-10-22] MEDS: LABETALOL 100 MG TAB PO SCH (09:08)
[2022-10-22] MEDS ORDERED: LABETALOL 100 MG TAB PO STA (09:23)
--- NOTE | 2022-10-22 09:40 | P.PNOBGVD ---
Subjective - Subjective Principal diagnosis: PPD 1 Interval history: Patient is doing well overall, she does complain of a mild headache unrelieved with medications. Blood pressures have been slightly elevated to 150s to 160s over 90s. Patient is currently taking 100 mg of labetalol twice daily. Patient did have preeclampsia labs upon admission, normal with the exception of uric acid being elevated at 8.5. Patient states lochia is minimal. Patient states she did pass a large clot yesterday which was followed by the onset of her headache. Infant remains in the nursery given gestational age Patient reports: Reports appetite normal, Reports voiding normally, Reports pain well controlled, Reports ambulating normally [place]: doing well (in the SCN) Objective - Latest Vital Signs Latest vital signs: Vital Signs Temp Pulse Resp BP Pulse Ox 10/22/22 08:00 97.9 F 78 156/96 98 10/22/22 05:00 60 16 136/87 98 10/22/22 04:05 169/84 10/22/22 02:30 159/90 10/22/22 02:20 64 16 171/98 10/21/22 23:29 97.9 F 74 16 137/88 97 10/21/22 16:00 98.3 F 69 14 163/87 10/21/22 12:00 98.3 F 67 14 154/89 Intake and Output 10/21/22 10/22/22 10/22/22 22:59 06:59 14:59 Other: # Voids 2 2 1 - Exam Extremities: Present: edema Abdomen: Present: normal appearance, soft Uterus: Present: normal, firm - Labs Labs: Abnormal Lab Results - Last 24 Hours (Table) 10/22/22 Range/Units 07:21 RBC 3.26 L (3.80-5.40) m/uL Hgb 9.8 L D (11.4-16.0) gm/dL Hct 28.8 L (34.0-46.0) % Assessment and Plan (1) Gestational diabetes Current Visit: Yes Status: Acute Code(s): O24.419 - GESTATIONAL DIABETES MELLITUS IN , UNSP CONTROL SNOMED Code(s): 79779496 (2) Normal vaginal delivery Current Visit: Yes Status: Acute Code(s): O80 - ENCOUNTER FOR FULL-TERM UNCOMPLICATED DELIVERY SNOMED Code(s): 26978118 (3) premature rupture of membranes Current Visit: Yes Status: Acute Code(s): O42.919 - PRETRM JULIETA ROM, UNSP TIME BETW RUPT AND ONST LABR, UNSP TRI SNOMED Code(s): 405633817 Plan: Patient is doing well . We will monitor blood pressures and increased little to 200 mg twice daily. Plan is discussed with patient. Questions are reviewed. We will monitor closely. Continue routine .
[2022-10-22] MEDS ORDERED: LABETALOL 200 MG TAB PO SCH (21:00)
[2022-10-23] MEDS: SENNOSIDES-DOCUSATE SODIUM 1 EACH TAB PO SCH ×2 (08:08→22:05)
--- NOTE | 2022-10-23 08:44 | P.PNOBGVD ---
Subjective - Subjective Principal diagnosis: day #2, normal spontaneous vaginal delivery, preeclampsia Interval history: Patient is doing well overall. She is ambulating and voiding without difficulty. Blood pressures remained elevated. She denies headache this morning. Patient reports: Reports appetite normal, Reports voiding normally, Reports pain well controlled, Reports ambulating normally [place]: doing well (In special care nursery off oxygen) Objective - Latest Vital Signs Latest vital signs: Vital Signs Temp Pulse Resp BP Pulse Ox 10/23/22 08:00 97.8 F 85 16 138/92 99 10/23/22 04:00 64 16 150/92 99 10/23/22 00:00 98.3 F 79 16 133/75 98 10/22/22 22:00 65 16 145/86 10/22/22 20:00 98.0 F 61 16 181/98 10/22/22 16:00 98 F 74 148/92 99 10/22/22 12:00 98.1 F 74 16 147/89 Intake and Output 10/22/22 10/23/22 10/23/22 22:59 06:59 14:59 Other: # Voids 2 1 - Exam Extremities: Present: normal, edema Abdomen: Present: normal appearance, soft Uterus: Present: normal, firm Assessment and Plan (1) Gestational diabetes Current Visit: Yes Status: Acute Code(s): O24.419 - GESTATIONAL DIABETES MELLITUS IN , UNSP CONTROL SNOMED Code(s): 55387041 (2) Normal vaginal delivery Current Visit: Yes Status: Acute Code(s): O80 - ENCOUNTER FOR FULL-TERM UNCOMPLICATED DELIVERY SNOMED Code(s): 79924180 (3) premature rupture of membranes Current Visit: Yes Status: Acute Code(s): O42.919 - PRETRM JULIETA ROM, UNSP TIME BETW RUPT AND ONST LABR, UNSP TRI SNOMED Code(s): 376600552 (4) Preeclampsia Current Visit: Yes Status: Acute Code(s): O14.90 - UNSPECIFIED PRE- ECLAMPSIA, UNSPECIFIED TRIMESTER SNOMED Code(s): 890669573 Plan: 32-year-old G4 now P3013 status post normal spontaneous vaginal delivery. Patient has continued elevated blood pressures. Will increase labetalol to 200 mg 3 times a day. Preeclampsia labs to be drawn this morning. We'll continue close observation.
[2022-10-23] MEDS ORDERED: PRENATAL VIT-IRON-FOLIC ACID 1 EACH TABLET PO SCH (09:00)
[2022-10-23] MEDS ORDERED: LABETALOL 200 MG TAB PO SCH (09:00)
[2022-10-23] MEDS: IBUPROFEN 600 MG TAB PO PRN ×3 (09:18→23:58)
[2022-10-23 09:49] LABS: Basophils % (A) 0 %; Eosinophils # (A) 0.1 k/uL (0-0.7); Eosinophils % (A) 2 %; HGB 9.6 gm/dL (11.4-16.0); Lymphocytes # (A) 1.5 k/uL (1.0-4.8); Lymphocytes % (A) 21 %; MCH 30.7 pg (25.0-35.0); MCHC 34.4 g/dL (31.0-37.0); MCV 89.3 fL (80.0-100.0); Mean Platelet Volume 9.7; Monocytes # (A) 0.3 k/uL (0-1.0); Monocytes % (A) 5 %; Neutrophils # (A) 5.1 k/uL (1.3-7.7); Neutrophils % (A) 71 %; Platelet Count 162 k/uL (150-450); RBC 3.13 m/uL (3.80-5.40); RDW 14.2 % (11.5-15.5); WBC 7.2 k/uL (3.8-10.6)
[2022-10-23 09:59] LABS: Uric Acid 7.2 mg/dL (3.7-7.4)
[2022-10-23] MEDS ORDERED: LABETALOL 100 MG TAB PO STA (12:21)
[2022-10-23] MEDS: LABETALOL 100 MG TAB PO SCH ×2 (16:14→22:05)
[2022-10-24] MEDS: IBUPROFEN 600 MG TAB PO PRN (06:20)
--- NOTE | 2022-10-24 08:21 | P.DS ---
Providers Date of admission: 10/21/22 02:50 Expected date of discharge: 10/24/22 Attending physician: Alpa Garcia Primary care physician: Stated None - Discharge Diagnosis(es) (1) Gestational diabetes Current Visit: Yes Status: Acute (2) Normal vaginal delivery Current Visit: Yes Status: Acute (3) premature rupture of membranes Current Visit: Yes Status: Acute (4) Preeclampsia Current Visit: Yes Status: Acute Hospital Course: this is a 32-year-old 4 now para 3013 that was made at 35 and one sevenths weeks in active labor was spontaneous rupture of membranes. Patient had been receiving routine care which have been complicated by gestational diabetes well-controlled with diet. Patient had been taking her blood pressures at home and states they were elevated but all blood pressures at her visits were normal. On admission blood pressures were noted to be significantly elevated preeclampsia labs were ordered and essentially normal. Patient was noted to be group beta strep positive but patient was noted to be completely dilated prior to infusion. Patient had normal spontaneous vaginal delivery of a viable male infant, weight of 4 lbs. 12 oz., Apgars of 7 and 8 at one and 5 minutes. No vaginal lacerations were appreciated. Infant was taken back to the nursery secondary to gestational age and nursery protocol. Patient's course has been completed by elevated blood pressures. Blood pressures have been controlled currently with labetalol 300 mg 3 times a day. Patient does have a slight headache which is controlled with ibuprofen. Patient does wish discharge home with stable blood pressures. Patient states she is very comfortable taking her blood pressures at home. Patient denies other signs or symptoms of preeclampsia. Repeat preeclampsia labs were done yesterday and normal in nature. Patient states her lochia to be moderate, she is pumping, she states her pain is controlled with oral ibuprofen. She is tolerating a regular diet without nausea or vomiting. Patient Condition at Discharge: Good Plan - Discharge Summary New Discharge Prescriptions: No Action Pnv,Calcium 72/Iron/Folic Acid [ Plus Tablet] 1 tab PO DAILY Discharge Medication List Pnv,Calcium 72/Iron/Folic Acid [ Plus Tablet] 1 tab PO DAILY 03/03/18 [History] Follow up Appointment(s)/Referral(s): Alpa Garcia DO [Doctor of Osteopathic Medicine] - 1 Week Patient Instructions/Handouts: Vaginal Delivery (GEN), Vaginal Delivery (DC) Activity/Diet/Wound Care/Special Instructions: patient is counseled on instructions for labetalol. She is to take 300 mg 3 times a day. Patient is to monitor her blood pressure at home morning and evening. Patient is counseled on signs or symptoms of preeclampsia. Patient is to call the office for a routine blood pressure check in 1 week. All questions are answered. Patient states understanding and does wish discharge home. Discharge Disposition: HOME SELF-CARE
[2022-10-24] MEDS: LABETALOL 100 MG TAB PO SCH (08:54)
[2022-10-24 09:33] VITALS: BP 134/87; PULSE 85; TEMP 98.2
== END 2022-10-24 10:00 | disposition home or self-care (01) | DRG 807 ==
LOC: FBPOP 02:32 → 4FBP 02:50
PROVIDERS: ADMIT Obstetrics & Gynecology; ATTEND Obstetrics & Gynecology Obstetrics
PROC: 10E0XZZ Delivery of Products of Conception, External Approach (ICD-10-PCS; principal; 2022-10-21)
PROC: 4A0HXCZ Measurement of Products of Conception, Cardiac Rate, External Approach (ICD-10-PCS; 2022-10-21)
DX: O42.913 Preterm premature rupture of membranes, unspecified as to length of time between rupture and onset of labor, third trimester (principal); Z37.0 Single live birth; O76 Abnormality in fetal heart rate and rhythm complicating labor and delivery; O24.420 Gestational diabetes mellitus in childbirth, diet controlled; O14.94 Unspecified pre-eclampsia, complicating childbirth; Z3A.35 35 weeks gestation of pregnancy; O62.3 Precipitate labor; Z88.1 Allergy status to other antibiotic agents
CPT/HCPCS: 59025; 82565; 83615; 84112; 84450; 84460; 84520; 84550; 85025; 85384; 85610; 85730; 86850; 86870; 86880; 86900; 86901; 88305; 99213

== ENCOUNTER 2022-11-01 22:02 | Inpatient (IN) | payer BC ==
[2022-11-01] MEDS ORDERED: LABETALOL 5 MG/ML VIAL MDV IVP PRN ×3 (22:05)
[2022-11-01] MEDS ORDERED: hydrALAZINE HCL 20 MG/ML 1 ML VIAL IVP PRN (22:05)
[2022-11-01 22:40] LABS: Basophils % (A) 0 %; Eosinophils # (A) 0.1 k/uL (0-0.7); Eosinophils % (A) 2 %; HCT 35.7 % (34.0-46.0); HGB 12.5 gm/dL (11.4-16.0); Lymphocytes # (A) 1.9 k/uL (1.0-4.8); Lymphocytes % (A) 29 %; MCH 30.7 pg (25.0-35.0); MCV 87.7 fL (80.0-100.0); Mean Platelet Volume 7.7; Monocytes # (A) 0.5 k/uL (0-1.0); Monocytes % (A) 8 %; Neutrophils # (A) 3.9 k/uL (1.3-7.7); Neutrophils % (A) 59 %; Platelet Count 314 k/uL (150-450); RBC 4.07 m/uL (3.80-5.40); RDW 13.5 % (11.5-15.5); WBC 6.5 k/uL (3.8-10.6)
[2022-11-01 22:47] VITALS: RESP 16; TEMP 98
[2022-11-01 22:49] LABS: INR 0.9 (<1.2); Partial Thromboplastin Time 22.1 sec (22.0-30.0); Prothrombin Time 9.7 sec (9.0-12.0)
[2022-11-01 22:51] LABS: ALT 17 U/L (4-34); AST 30 U/L (14-36); African American GFR (CKD) >90 (>60 ml/min/1.73 sqM); Blood Urea Nitrogen 19 mg/dL (7-17); LDH 671 U/L (313-618); Magnesium 2.1 mg/dL (1.6-2.3); Non-African American GFR(CKD) >90 (>60 ml/min/1.73 sqM); Uric Acid 5.3 mg/dL (3.7-7.4)
[2022-11-01 23:55] LABS: Appearance,Urine Cloudy (Clear); Bacteria,Urine Rare /hpf; Bilirubin,Urine Negative (Negative); Blood,Urine Large (Negative); Color,Urine Yellow; Glucose,Urine (UA) Negative (Negative); Ketones,Urine Negative (Negative); Leukocyte Esterase,Urine Large (Negative); Mucus,Urine Rare /hpf; Nitrite,Urine Negative (Negative); Protein,Urine 1+ (Negative); RBC,Urine 45 /hpf (0-5); Specific Gravity,Urine 1.025 (1.001-1.035); Squamous Epithelial Cell,Urine 4 /hpf (0-4); Urobilinogen,Urine <2.0 mg/dL (<2.0); WBC,Urine 86 /hpf (0-5)
[2022-11-02 01:15] VITALS: BP 142/94; PULSE 60
--- NOTE | 2022-11-28 09:21 | P.HPOB ---
History of Present Illness H&P Date: 11/28/22 Chief Complaint: possible preeclampsia the patient reported to the emergency room approximately 2 weeks with elevated blood pressures at home as well as headache and scotomata. Evaluation in the emergency room demonstrated elevated blood pressures and she was directly admitted to labor and delivery. She arrived to labor and delivery at which time laboratory workup was ordered and serial blood pressures were ordered serial blood pressures remained in a relatively normal range without use of antihypertensives and laboratory workup failed to demonstrate any signs of preeclampsia. As a result of this, she was changed from a direct admit from the emergency room to an observation patient in triage. I was never required to see the patient and she was ultimately discharged in stable condition. Past Medical History Past Medical History: No Reported History Additional Past Medical History / Comment(s): Obstetric history: First was a spontaneous with a D&C. This is her second and she's had care with me since 21 weeks as a transfer of care. Blood type A-, antibodies negative, rubella immune, RPR nonreactive, hepatitis B negative, HIV nonreactive. GBS negative. Abnormal one-hour GTT, and a normal 3 hour. GDM 09/19 History of Any Multi-Drug Resistant Organisms: None Reported Additional Past Surgical History / Comment(s): She's had a D&C for a previous miscarriage. Past Anesthesia/Blood Transfusion Reactions: No Reported Reaction Past Psychological History: No Psychological Hx Reported Smoking Status: Never smoker Past Alcohol Use History: None Reported Past Drug Use History: None Reported - Past Family History Mother Family Medical History: No Reported History Medications and Allergies Home Medications Medication Instructions Recorded Confirmed Type Pnv,Calcium 72/Iron/Folic Acid 1 tab PO DAILY 03/03/18 11/01/22 History [ Plus Tablet] Labetalol [Trandate] 300 mg PO TID 11/01/22 11/02/22 History amLODIPine [Norvasc] 5 mg PO DAILY 30 Days #30 tab 11/03/22 Rx Allergies Allergy/AdvReac Type Severity Reaction Status Date / Time azithromycin Allergy Rash/Hives Verified 11/02/22 11:47 Exam I have neither seen nor examined the patient as she remained in triage for the entirety of her stay. Results Result Diagrams: 11/01/22 22:29 11/01/22 22:29 Assessment and Plan (1) 2 weeks follow-up Status: Acute Code(s): Z39.2 - ENCOUNTER FOR ROUTINE FOLLOW-UP SNOMED Code(s): 180494609 (2) Hypertension Status: Acute Code(s): I10 - ESSENTIAL (PRIMARY) HYPERTENSION SNOMED Code(s): 46108095 Plan: the initial ER concerns that prompted direct admission to labor and delivery were not borne out upon arrival to labor and delivery. Blood pressures stabilized within the normal range that was not treatable and laboratory workup failed to demonstrate signs or symptoms of preeclampsia. As a result, she was changed from inpatient status to triage status and ultimately discharged home from triage. I have not seen her examined the patient. This dictation is in review of the notes provided to me on labor and delivery.
--- NOTE | 2022-11-28 09:23 | P.DS ---
Providers Date of admission: 11/01/22 22:02 Expected date of discharge: 11/02/22 Attending physician: Alpa Garcia Primary care physician: Stated None - Discharge Diagnosis(es) (1) 2 weeks follow-up Status: Acute (2) Hypertension Status: Acute Hospital Course: as in history of present illness, the patient was admitted having not been seen by myself through the emergency department for presumptive preeclampsia. She arrived on labor and delivery and was placed in the triage at which time her blood pressures were noted to be in a stable area not requiring antihypertensive therapy. Laboratory workup failed to demonstrate signs or symptoms of preeclampsia and her status was changed from inpatient to triage after which time she was discharged. I have not seen and examined the patient has noted in history of present illness. This document as result of review of the notes from the encounter. Procedures: #1. Serial blood pressures #2. Laboratory workup for preeclampsia Patient Condition at Discharge: Stable Plan - Discharge Summary Discharge Rx Participant: No New Discharge Prescriptions: No Action Pnv,Calcium 72/Iron/Folic Acid [ Plus Tablet] 1 tab PO DAILY Labetalol [Trandate] 300 mg PO TID amLODIPine [Norvasc] 5 mg PO DAILY 30 Days #30 tab Discharge Medication List Pnv,Calcium 72/Iron/Folic Acid [ Plus Tablet] 1 tab PO DAILY 03/03/18 [History] Labetalol [Trandate] 300 mg PO TID 11/01/22 [History] amLODIPine [Norvasc] 5 mg PO DAILY 30 Days #30 tab 11/03/22 [Rx] Discharge Disposition: HOME SELF-CARE
== END 2022-11-02 01:09 | disposition home or self-care (01) | DRG 776 ==
LOC: 4FBP 22:02
PROVIDERS: ADMIT Obstetrics & Gynecology; ATTEND Obstetrics & Gynecology Obstetrics
DX: O16.5 Unspecified maternal hypertension, complicating the puerperium (principal); Z86.32 Personal history of gestational diabetes; Z79.899 Other long term (current) drug therapy; Z88.1 Allergy status to other antibiotic agents
CPT/HCPCS: 81001; 82565; 83615; 83735; 84450; 84460; 84520; 84550; 85025; 85384; 85610; 85730

== ENCOUNTER 2022-11-02 11:40 | Observation (INO) | payer BC ==
--- NOTE | 2022-11-02 14:27 | P.HPOB ---
History of Present Illness H&P Date: 11/02/22 Chief Complaint: hypertension 32-year-old female status post normal spontaneous vaginal delivery at 35 weeks with elevated blood pressures. Patient did well elevated blood pressures remained and she was begun on labetalol 300 mg 3 times a day. Patient initially did well. Patient had noted elevated blood pressures at home 150s over 100s. Patient return to the office for blood pressure check with normal blood pressures. Patient 3 presented last evening to the emergency department after not feeling well all day being very fatigued. Patient noted headache and visual changes at the time. Initial blood pressure in the ER 200s over 100. Patient was then sent to OB triage for possible admission. Blood pressures noted to be elevated and 20 mg of labetalol IV were given 1. Patient's blood pressures following that normalized to 140s to 150s over 90s. In addition she had preeclampsia labs that were negative. Patient felt reasonably well at the time and was discharged home. Patient was contacted this morning regarding blood pressures last evening and states her blood pressures remain elevated at home. Patient was asked to return to the hospital for continued blood pressure management. Patient continues to have a mild headache. She denies nausea or vomiting. She denies fevers or chills. She is urinating without difficulty. She denies constipation. Review of Systems Constitutional: Reports fatigue, Denies chills, Denies fever Ears, nose, mouth and throat: Reports headache Cardiovascular: Reports leg edema Respiratory: Denies dyspnea Gastrointestinal: Denies nausea, Denies vomiting Genitourinary: Denies Past Medical History Past Medical History: No Reported History Additional Past Medical History / Comment(s): Obstetric history: First was a spontaneous with a D&C. This is her second and she's had care with al since 21 weeks as a transfer of care. Blood type A-, antibodies negative, rubella immune, RPR nonreactive, hepatitis B negative, HIV nonreactive. GBS negative. Abnormal one-hour GTT, and a normal 3 hour. GDM 09/19 History of Any Multi-Drug Resistant Organisms: None Reported Additional Past Surgical History / Comment(s): She's had a D&C for a previous miscarriage. Past Anesthesia/Blood Transfusion Reactions: No Reported Reaction Smoking Status: Never smoker - Past Family History Mother Family Medical History: No Reported History Medications and Allergies Home Medications Medication Instructions Recorded Confirmed Type Pnv,Calcium 72/Iron/Folic Acid 1 tab PO DAILY 03/03/18 11/01/22 History [ Plus Tablet] Labetalol [Trandate] 300 mg PO TID 11/01/22 11/02/22 History Allergies Allergy/AdvReac Type Severity Reaction Status Date / Time azithromycin Allergy Rash/Hives Verified 11/02/22 11:47 Exam Osteopathic Statement: *. No significant issues noted on an osteopathic structural exam other than those noted in the History and Physical/Consult. 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 Assessment and Plan (1) hypertension Current Visit: Yes Status: Acute Code(s): O16.5 - UNSPECIFIED MATERNAL HYPERTENSION, COMP THE PUERPERIUM SNOMED Code(s): 04620594 Plan: 32-year-old non patient status post normal spontaneous vaginal delivery on 11/20. Patient with continued elevated blood pressures despite labetalol 300 mg 3 times a day. She did have negative preeclampsia labs yesterday, blood pressures remain 140- 160 over 100s. EKG was ordered and essentially negative Medicine consult is initiated, will await recommendations. Plan of care is discussed with the patient in detail questions are answered. Patient states understanding of the need for admission and IM consult.
[2022-11-02] MEDS ORDERED: ACETAMINOPHEN TAB 325 MG TAB PO PRN (14:29)
[2022-11-02] MEDS ORDERED: LABETALOL 200 MG TAB PO SCH (16:00)
[2022-11-02] MEDS ORDERED: IBUPROFEN 600 MG TAB PO SCH (16:00)
[2022-11-02] MEDS: LABETALOL 100 MG TAB PO SCH ×2 (16:20→21:46)
--- NOTE | 2022-11-02 16:22 | P.CONS ---
History of Present Illness - Reason for Consult Consult date: 11/02/22 Uncontrolled hypertension - History of Present Illness Hospital course: Patient is a very pleasant 32-year-old female whom recently had spontaneous vaginal delivery at 35 weeks gestation on 10/21/22 . Patient is a U2-E1-Y0-A1-L1 and denies having any medical history with the exception of previous miscarriage. She states up until her 33rd week of gestation she was having a normal healthy with "perfect" blood pressures and states it was not until her 33rd week of gestation that she began developing elevated blood pressures 140s to 150s systolic over 90s to low 100s diastolic. After delivering her son at 35 weeks gestation she continued to have elevated blood pressures and was discharged home on labetalol 300 mg 3 times daily. She states despite taking antihypertensive medications patient continued to have elevated pressures. Patient reports his elevated pressures have been associated with episodes of fatigue, headache, and visual changes. Patient is currently admitted to mother-baby unit under primary admitting [facility] RN team and we have been consulted for assistance with antihypertensive medication management. Patient seen and fully evaluated at bedside. She reports mild headache otherwise denies having any complaints at this time including dizziness, lightheadedness, visual changes, chest pain, palpitations, shortness of breath, or experiencing any numbness/tingling/weakness/swelling in her extremities. Physical exam: Vital signs reviewed and stable with exception of mildly elevated blood pressure 138/90. General: Nontoxic, no distress and appears stated age. Derm: Skin warm and dry, normal coloration for ethnicity. Head: Atraumatic, normocephalic and symmetric. Eyes: EOMs intact, no lid lag, and anicteric sclera Mouth: no lip lesions, mucus membranes moist Cardiovascular: regular rate and rhythm with normal S1S2, no murmur, positive posterior tibial pulses bilaterally, and cap refill < 2 seconds. Lungs: Respirations even, regular, and unlabored on room air. Lungs CTA bilaterally, no rhonchi, no rales, no wheezing, and no accessory muscle usage. Abdominal: soft, nontender to palpation, no guarding, no appreciable organomegaly. Patient reports continued light vaginal bleeding status post delivery on 10/21/22. Ext: ROM intact. No gross muscle atrophy, no edema, no contractures Neuro: Speech clear, face symmetrical and CN II-XII grossly intact with no noted focal neuro deficits Psych: Alert and oriented to person, place, time, and situation. Appropriate and pleasant affect. Assessment and Plan of Care: Uncontrolled hypertension Likely secondary to preeclampsia. Patient has had no improvement on labetalol. Started on amlodipine at this time, 5 mg daily. Had a long discussion with patient and patient's significant other at bedside regarding need to monitor blood pressure closely once we have stabilized and she is ready for discharge as she will likely need to be tapered back off of medication in 4-6 weeks if hypertension is resulting from presumed preeclampsia. Monitor vital signs closely Obtain EKG Echocardiogram to rule out myopathy Headache -Likely secondary to hypertension. At this time patient may take Tylenol and/or Motrin as needed for pain/discomfort. Thank you for allowing us to participate in the care of this pleasant patient. Do not hesitate to contact us with questions. Someone can be reached from the [facility] hospitalist group all hours of the day at [phone] or via [employer]. I reviewed the documentation as provided by the DEWAYNE above, who is the original author of this note. I agree with the documented assessment and plan, with the following changes: none Past Medical History Past Medical History: No Reported History Additional Past Medical History / Comment(s): Obstetric history: First was a spontaneous with a D&C. This is her second and she's had care with me since 21 weeks as a transfer of care. Blood type A-, antibodies negative, rubella immune, RPR nonreactive, hepatitis B negative, HIV nonreactive. GBS negative. Abnormal one-hour GTT, and a normal 3 hour. GDM 09/19 History of Any Multi-Drug Resistant Organisms: None Reported Additional Past Surgical History / Comment(s): She's had a D&C for a previous miscarriage. Past Anesthesia/Blood Transfusion Reactions: No Reported Reaction Smoking Status: Never smoker - Past Family History Mother Family Medical History: No Reported History Medications and Allergies Home Medications Medication Instructions Recorded Confirmed Type Pnv,Calcium 72/Iron/Folic Acid 1 tab PO DAILY 03/03/18 11/01/22 History [ Plus Tablet] Labetalol [Trandate] 300 mg PO TID 11/01/22 11/02/22 History amLODIPine [Norvasc] 5 mg PO DAILY 30 Days #30 tab 11/03/22 Rx Allergies Allergy/AdvReac Type Severity Reaction Status Date / Time azithromycin Allergy Rash/Hives Verified 11/02/22 11:47 Physical Exam Vitals: Vital Signs Temp Pulse Resp BP BP Pulse Ox 11/02/22 13:35 138/90 11/02/22 13:31 150/102 11/02/22 13:30 98.3 F 61 17 152/91 97 11/02/22 13:02 64 139/99 11/02/22 13:00 134/91 11/02/22 12:47 152/104 11/02/22 12:42 71 168/100 11/02/22 12:41 164/105 11/02/22 12:38 168/110 11/02/22 12:32 72 132/90 11/02/22 12:22 71 17 138/92 11/02/22 12:12 70 138/92 11/02/22 12:05 75 17 141/94 11/02/22 11:55 76 17 137/91 11/02/22 11:45 99.3 F 76 17 134/94 Intake and Output 11/02/22 11/02/22 11/02/22 06:59 14:59 22:59 Other: Weight 79.379 kg Results CBC & Chem 7: 11/02/22 22:38 11/02/22 22:35
[2022-11-02] MEDS: amLODIPine 5 MG TAB PO SCH (16:55)
[2022-11-02 23:26] LABS: HCT 32.4 % (34.0-46.0); HGB 10.8 gm/dL (11.4-16.0); Hypochromasia Slight; MCH 30.1 pg (25.0-35.0); MCHC 33.4 g/dL (31.0-37.0); MCV 90.1 fL (80.0-100.0); Mean Platelet Volume 8.1; Platelet Count 289 k/uL (150-450); Poikilocytosis Slight; RDW 13.8 % (11.5-15.5); WBC 6.5 k/uL (3.8-10.6)
[2022-11-02 23:47] LABS: ALT 16 U/L (4-34); AST 27 U/L (14-36); African American GFR (CKD) >90 (>60 ml/min/1.73 sqM); Albumin 4.3 g/dL (3.5-5.0); Alkaline Phosphatase 81 U/L (38-126); Anion Gap 8 mmol/L; Blood Urea Nitrogen 19 mg/dL (7-17); Calcium 9.2 mg/dL (8.4-10.2); Carbon Dioxide 26 mmol/L (22-30); Chloride 105 mmol/L (98-107); Glucose 90 mg/dL (74-99); Non-African American GFR(CKD) >90 (>60 ml/min/1.73 sqM); Potassium 4.4 mmol/L (3.5-5.1); Sodium 139 mmol/L (137-145); Total Bilirubin 0.5 mg/dL (0.2-1.3)
[2022-11-03 08:17] VITALS: RESP 14; TEMP 97.6
[2022-11-03] MEDS: amLODIPine 5 MG TAB PO SCH (08:42)
[2022-11-03] MEDS: LABETALOL 100 MG TAB PO SCH (08:43)
[2022-11-03] MEDS ORDERED: PRENATAL VIT-IRON-FOLIC ACID 1 EACH TABLET PO SCH (09:00)
--- NOTE | 2022-11-03 09:39 | P.PN ---
Subjective Progress Note Date: 11/03/22 Principal diagnosis: hypertension Yobany is feeling significantly better this morning. She reports complete resolution of headache. Swelling is improving in her ankles. She is ambulating and voiding without difficulty. She denies any visual changes or abdominal carrie n. She reports she feels better than she has for the last 3 weeks leading up to delivery. Her blood pressures did significantly improve throughout the evening with the addition of Norvasc to her labetalol. Blood pressure ranged mainly in the 130s over 80s. Objective - Vital Signs Vital signs: Vital Signs Temp 97.6 F 11/03/22 08:00 Pulse 86 11/03/22 08:00 Resp 14 11/03/22 08:00 BP 128/87 11/03/22 08:00 Pulse Ox 97 11/02/22 13:30 FiO2 Intake & Output 11/02/22 11/03/22 11/03/22 18:59 06:59 18:59 Weight 79.379 kg Other: # Voids 2 2 - Constitutional General appearance: Present: average body habitus - Respiratory Respiratory: bilateral: CTA - Cardiovascular Rhythm: regular - Neurologic Neurologic Comment(s): No focal deficits, DTRs 2+ - Additional findings Additional findings: Trace bilateral lower extremity edema - Labs CBC & Chem 7: 11/02/22 22:38 11/02/22 22:35 Labs: Abnormal Lab Results - Last 24 Hours (Table) 11/02/22 11/02/22 Range/Units 22:35 22:38 RBC 3.60 L (3.80-5.40) m/uL Hgb 10.8 L (11.4-16.0) gm/dL Hct 32.4 L (34.0-46.0) % BUN 19 H (7-17) mg/dL Assessment and Plan (1) hypertension Current Visit: Yes Status: Acute Code(s): O16.5 - UNSPECIFIED MATERNAL HYPERTENSION, COMP THE PUERPERIUM SNOMED Code(s): 57929454 Plan: 32-year-old 2 para 1011 woman admitted with hypertension for blood pressure control. Preeclamptic laboratory data all within normal limits. Significant improvement of blood pressures with addition of Norvasc. Echocardiogram is pending and if that is normal she can be discharged home on labetalol 300 milligrams 3 times a day and Norvasc 5 mg daily. Time with Patient: Less than 30
--- NOTE | 2022-11-03 11:12 | P.PN ---
Subjective Progress Note Date: 11/03/22 Hospital course: Patient is a very pleasant 32-year-old female whom recently had spontaneous vaginal delivery at 35 weeks gestation on 10/21/22 . Patient is a G2- T0-P1-A1-L1 and denies having any medical history with the exception of previous miscarriage. She states up until her 33rd week of gestation she was having a normal healthy with "perfect" blood pressures and states it was not until her 33rd week of gestation that she began developing elevated blood pressures 140s to 150s systolic over 90s to low 100s diastolic. After delivering her son at 35 weeks gestation she continued to have elevated blood pressures and was discharged home on labetalol 300 mg 3 times daily. She states despite taking antihypertensive medications patient continued to have elevated pressures up to 200 systolic over low 100's diastolic. Patient reports these el evated pressures have been associated with episodes of fatigue, headache, and visual changes. Patient is currently admitted to mother-baby unit under primary admitting [employer] team and we have been consulted for assistance with antihypertensive medication management. Physical exam: Patient seen and fully evaluated at bedside. Patient's blood pressures have been nicely optimized and current antihypertensive medication with Norvasc 5 mg daily and labetalol 300 mg 3 times a day. Current blood pressure 128/87. Patient is free from any complaints including headache, lightheadedness, dizziness, changes in vision, tinnitus, chest pain, palpitations, shortness of breath, or experiencing any numbness/tingling/weakness/swelling in her extremities. Medically patient is stable for discharge home at this time once cleared by primary admitting [employer] team. Recommend continuing Norvasc 5 mg daily along with current prescription of labetalol. Patient was educated on the importance of monitoring blood pressures closely after discharge and if blood pressures fall below 110 systolic patient to notify her PCP as she will likely need titration down of these medications. Prescription for amlodipine sent to [facility] as patient requested. Vital signs reviewed and stable. General: Nontoxic, no distress and appears stated age. Derm: Skin warm and dry, normal coloration for ethnicity. Head: Atraumatic, normocephalic and symmetric. Eyes: EOMs intact, no lid lag, and anicteric sclera Mouth: no lip lesions, mucus membranes moist Cardiovascular: regular rate and rhythm with normal S1S2, no murmur, positive posterior tibial pulses bilaterally, and cap refill < 2 seconds. Lungs: Respirations even, regular, and unlabored on room air. Lungs CTA bilaterally, no rhonchi, no rales, no wheezing, and no accessory muscle usage. Abdominal: soft, nontender to palpation, no guarding, no appreciable organomegaly. Patient reports continued light vaginal bleeding status post delivery on 10/21/22. Ext: ROM intact. No gross muscle atrophy, no edema, no contractures Neuro: Speech clear, face symmetrical and CN II-XII grossly intact with no noted focal neuro deficits Psych: Alert and oriented to person, place, time, and situation. Appropriate and pleasant affect. Assessment and Plan of Care: Uncontrolled hypertension, blood pressures have been optimized after initiation of amlodipine 5 mg daily in addition to patient's Norvasc 300 mg 3 times daily. Likely secondary to preeclampsia. Patient has had no improvement on labetalol. Started on amlodipine at this time, 5 mg daily and blood pressures have been successfully controlled with current blood pressure 128/87. Patient was educated on the importance of monitoring blood pressures closely after discharge and if blood pressures fall below 110 systolic patient to notify her PCP as she will likely need titration down of these medications. -Prescription for amlodipine sent to [facility] as patient requested. Echocardiogram was discontinued per patient request, recommend patient following up outpatient with Dr. Salazar for follow-up appointment in scheduling of outpatient echocardiogram. Headache, likely secondary to uncontrolled hypertension and now that blood pressures have been optimized patient has had full resolution of previously reported headache. Thank you for allowing us to participate in the care of this pleasant patient. Do not hesitate to contact us with questions. Someone can be reached from the [facility] hospitalist group all hours of the day at [phone] or via perfect serve. I reviewed the documentation as provided by the DEWAYNE above, who is the original author of this note. I agree with the documented assessment and plan, with the following changes: none Objective - Vital Signs Vital signs: Vital Signs Temp 97.6 F 11/03/22 08:00 Pulse 86 11/03/22 08:00 Resp 14 11/03/22 08:00 BP 128/87 11/03/22 08:00 Pulse Ox 97 11/02/22 13:30 FiO2 Intake & Output 11/02/22 11/03/22 11/03/22 18:59 06:59 18:59 Weight 79.379 kg Other: # Voids 2 2 - Labs CBC & Chem 7: 11/02/22 22:38 11/02/22 22:35 Labs: Abnormal Lab Results - Last 24 Hours (Table) 11/02/22 11/02/22 Range/Units 22:35 22:38 RBC 3.60 L (3.80-5.40) m/uL Hgb 10.8 L (11.4-16.0) gm/dL Hct 32.4 L (34.0-46.0) % BUN 19 H (7-17) mg/dL
[2022-11-03 11:22] VITALS: BP 126/85; PULSE 68
== END 2022-11-03 11:58 | disposition home or self-care (01) ==
LOC: FBPOP 11:40 → 4FBP 12:49
PROVIDERS: ADMIT Obstetrics & Gynecology Obstetrics; ATTEND Obstetrics & Gynecology Obstetrics
DX: O16.5 Unspecified maternal hypertension, complicating the puerperium (principal); R51.9 Headache, unspecified; Z79.899 Other long term (current) drug therapy; Z88.1 Allergy status to other antibiotic agents
CPT/HCPCS: 99215; 93005; 80053; 85027; G0378 ×2